=== PATIENT | male | born 2000 | race Two or more races ===

== ENCOUNTER 2025-02-24 09:20 | Emergency (ER) | payer OTHER ==
[~2025-02-24] VITALS: Ht 180.3 cm; Wt 102.1 kg
[2025-02-24] MEDS ORDERED: KETOROLAC TROMETHAMINE 30 MG VIAL IV ONE (10:30)
[2025-02-24] MEDS ORDERED: FAMOTIDINE/PF 20 MG/2 ML VIAL IV ONE (10:30)
[2025-02-24] MEDS ORDERED: 0.9 % SODIUM CHLORIDE 1,000 ML IV ONE (10:30)
[2025-02-24] MEDS ORDERED: ONDANSETRON HCL 2 MG/ML VIAL IV ONE (10:30)
[2025-02-24 11:48] LABS: BASO % 0.4 % (0.1-1.2); EOS # 0.38 (0.04-0.54); EOS % 2.6 % (0.7-7.0); LYMPH # 1.66 (1.18-3.74); LYMPH % 11.2 % (19.3-53.1); MEAN PLATELET VOLUME 9.60 fl (9.4-12.4); MONO # 1.18 (0.24-0.82); MONO % 8.0 % (4.7-12.5); NEUT # 11.48 (1.56-6.13); NEUT % 77.5 % (34.0-71.1); RED CELL DISTRIBUTION WIDTH 12.4 % (11.6-14.4)
[2025-02-24 12:06] LABS: INR 1.02
[2025-02-24 12:22] LABS: ALT/SGPT 257.0 U/L (12-78); AST/SGOT 66.0 U/L (15-37); BILIRUBIN TOTAL 0.69 mg/dL (0.3-1.2); BILIRUBIN,CONJUGATED 0.2 mg/dL (0.0-0.2); BUN CREA RATIO 20.0 (7.0-25.0); CREATININE SERUM 0.81 mg/dL (0.70-1.30); GFR 117.07; GLOBULINA 4.4 G/DL (2.4-3.5); GLUCOSE FASTING 104.0 mg/dL (65-100); OSMOLALITY SERUM 279.0 MOSM/KG (275-295)
[2025-02-24 12:23] LABS: COVID-19 AG NEGATIVE (NEGATIVE)
[2025-02-24] MEDS ORDERED: ZOFRAN8 MG PO (12:44)
[2025-02-24] MEDS ORDERED: CARAFATE1 GM PO (12:44)
[2025-02-24] MEDS ORDERED: PEPCID AC20 MG PO (12:44)
== END 2025-02-24 13:14 | disposition home or self-care (01) ==
LOC: ER 09:21
PROVIDERS: General Practice
DX: R10.13 Epigastric pain (principal); R11.2 Nausea with vomiting, unspecified; Z20.822 Contact with and (suspected) exposure to COVID-19